=== PATIENT | female | born 1960 | race Caucasian/White ===

== ENCOUNTER → 2023-08-15 | Outpatient (CLI) | payer MEDICARE | LOC: RAD 14:19 | DX: Z13.820 Encounter for screening for osteoporosis (principal); Z12.31 Encounter for screening mammogram for malignant neoplasm of breast; M81.0 Age-related osteoporosis without current pathological fracture ==

== ENCOUNTER → 2024-08-07 | Outpatient (CLI) | payer MEDICARE ==
[2024-08-07 14:26] LABS: BASO # 0.02 K/mm3 (0.02-0.10); HEMOGLOBIN 13.7 g/dL (12.5-16.0); LYMPH# 1.38 K/mm3 (1.50-4.00); MEAN CELL VOLUME 94 fl (78-100); MEAN CORPUSCULAR HEMOGLOBIN 31 pg (27-31); MEAN CORPUSCULAR HGB CONC 33 g/dL (33-37); MEAN PLATELET VOLUME 8.9 fl (7.4-10.4); NEU # 3.28 K/mm3 (1.40-6.50); PLATELET COUNT 269 K/mm3 (130-400); RED BLOOD COUNT 4.37 M/mm3 (4.10-5.30); RED CELL DISTRIBUTION WIDTH 11.8 % (11.5-14.5); WHITE BLOOD COUNT 5.1 K/mm3 (4.8-10.8)
[2024-08-07 14:41] LABS: ALBUMIN 4.8 g/dL (3.4-4.8)
[2024-08-07 14:42] LABS: CALCIUM 10.5 mg/dL (8.3-10.5)
[2024-08-07 14:43] LABS: TOTAL PROTEIN 7.1 g/dL (6.2-8.1)
[2024-08-07 14:45] LABS: TOTAL BILIRUBIN 0.5 mg/dL (0.2-1.2)
== END ==
LOC: LAB 14:14
PROVIDERS: Nurse Practitioner
DX: Z13.220 Encounter for screening for lipoid disorders (principal); E78.5 Hyperlipidemia, unspecified; E03.9 Hypothyroidism, unspecified